=== PATIENT | male | born 1960 | race Caucasian/White ===

== ENCOUNTER 2017-11-26 01:39 | Emergency (ER) | payer SELFPAY ==
[~2017-11-26] VITALS: Ht 180.3 cm; Wt 81.0 kg
[2017-11-26] MEDS ORDERED: SODIUM CHLORIDE 0.9% 1,000 ML IV ONE (02:29)
[2017-11-26] MEDS ORDERED: PHENYTOIN SODIUM EXTENDED 100MG CAPSULE PO ONE (02:30)
[2017-11-26 03:01] LABS: CHLORIDE 108 mEq/L (98-107)
[2017-11-26 03:05] LABS: ETHANOL BLOOD 110 mg/dL
[2017-11-26 03:27] LABS: EOSINOPHILS % 4.1 % (0.0-5.0); LYMPHOCYTES % 21.6 % (20.0-50.0); MEAN CORPUSCULAR HEMOGLOBIN 34.1 pg (28.0-32.0); MEAN CORPUSCULAR VOLUME 95.6 fL (80.0-94.0); MEAN PLATELET VOLUME 9.6 fl (7.4-10.4); MONOCYTES % 12.2 % (2.0-8.0); NEUTROPHILS % 61.1 % (40.0-76.0); PLATELET 62 x1000/uL (130-400); RED CELL DISTRIBUTION WIDTH 14.7 % (11.6-14.6)
[2017-11-26 05:20] VITALS: BP 138/78
== END 2017-11-26 05:20 | disposition home or self-care (01) ==
LOC: ER 01:39
DX: R07.89 Other chest pain (principal); R56.9 Unspecified convulsions; Z88.6 Allergy status to analgesic agent
CPT/HCPCS: 36415; 71045; 80053; 80185; 84484; 85025; 93005; 99285; G0482; J7030; Z7610